=== PATIENT | male | born 1980 | race Hispanic/Latino ===

== ENCOUNTER 2016-08-05 09:53 | Emergency (ER) | payer MEDICAID ==
[2016-08-05 10:01] VITALS: BMI 31.5
[2016-08-05 10:03] VITALS: BP 102/72; PULSE 72; RESP 19; TEMP 97.5; O2SAT 98
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
[2016-08-05] MEDS ORDERED: TDAP Vaccine 0.5 mL Syr IM ONE (10:38)
[2016-08-05] MEDS ORDERED: Tetanus/Diphtheria Toxoids 0.5 ml Syringe IM ONE (11:35)
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
== END 2016-08-05 14:08 | disposition home or self-care (01) ==
LOC: H.ER 09:53
DX: S00.81XA Abrasion of other part of head, initial encounter (principal); S02.2XXA Fracture of nasal bones, initial encounter for closed fracture; Y04.0XXA Assault by unarmed brawl or fight, initial encounter; Y92.89 Other specified places as the place of occurrence of the external cause; F31.9 Bipolar disorder, unspecified; F41.9 Anxiety disorder, unspecified; G47.30 Sleep apnea, unspecified

== ENCOUNTER 2017-01-29 16:02 | Emergency (ER) | payer MEDICAID ==
[2017-01-29 16:03] VITALS: BMI 31.5
[2017-01-29 16:25] VITALS: BP 126/67; PULSE 79; RESP 18; TEMP 97.7; O2SAT 99
[2017-01-29] MEDS ORDERED: Amoxicillin-Clav 875-125 mg Tab PO ONE (17:16)
[2017-01-29] MEDS: Amoxicillin-Clav 875-125 mg Tab PO STA (17:21)
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
== END 2017-01-29 17:22 | disposition home or self-care (01) ==
LOC: H.ER 16:02
DX: Z76.0 Encounter for issue of repeat prescription (principal); F31.9 Bipolar disorder, unspecified; F41.9 Anxiety disorder, unspecified